=== PATIENT | male | born 1970 | race Caucasian/White ===

== ENCOUNTER → 2017-12-12 07:57 | Outpatient (CLI) | payer BC, SELFPAY ==
[2017-12-12 08:11] LABS: Basophils # 0.1 K/mm3 (0-0.2); Eosinophils # 0.2 K/mm3 (0.0-0.4); Eosinophils % 3.6 % (0.1-12.0); Hematocrit 51.5 % (42.0-52.0); Hemoglobin 16.9 g/dL (14.1-18.0); Lymphocytes # 1.4 K/mm3 (0.7-4.5); Lymphocytes % 26.8 K/mm3 (10-50); Mean Corpuscular HGB Conc 32.8 g/dL (31.8-35.4); Mean Corpuscular Hemoglobin 30.8 pg (27.0-31.2); Mean Corpuscular Volume 93.9 fl (80-94); Mean Platelet Volume 7.5 fl (7.4-10.4); Monocytes # 0.5 K/mm3 (0.1-1.0); Monocytes % 8.9 % (1.7-9.3); Neutrophils % 59.7 % (37.0-80.0); Platelet Count 237 K/mm3 (142-424); Red Blood Count 5.49 M/mm3 (4.60-6.20); Red Cell Distribution Width 12.7 % (11.5-17.5); White Blood Count 5.1 K/mm3 (4.8-10.8)
--- NOTE | 2017-12-12 09:00 | CT_ITS ---
CT abdomen pelvis w con COMPARISON: CT scan abdomen pelvis with IV and oral contrast 06/14/2017 HISTORY: Known Hodgkin's lymphoma TECHNIQUE: Multiaxial scans obtained from hemidiaphragms the pelvic floor and were performed with IV and oral contrast. Sagittal and coronal reformats were evaluated as well. FINDINGS: The lower lung barraza are clear. There is a small hiatal hernia. The liver stomach and pancreas appear normal. The gallbladder is grossly normal. The spleen is normal size again showing a couple of splenules. The adrenal glands are normal. The kidneys are normal in size and show symmetrical function both appearing normal. There is a small umbilical hernia containing fat only. Small bowel appears normal. Again noted are a few small mesenteric nodes. There is no abnormal retroperitoneal lymphadenopathy. I do not definitely identify the appendix but there are no pericecal inflammatory changes. There is moderate stool mixed with oral contrast in the right and transverse colon. The urinary bladder and prostate appear normal. Again noted is a stable grade 1 spondylolisthesis of L3 on L4 IMPRESSION: Findings as described with no abnormal abdominal or pelvic lymphadenopathy noted
--- NOTE | 2017-12-12 09:00 | CT_ITS ---
CT soft tissue neck w con COMPARISON: CT scan the neck with IV contrast 04/02/2015 HISTORY: Known Hodgkin's lymphoma TECHNIQUE: Multiaxial scans obtained from the base skull to the upper chest and were performed after injection of IV contrast. Sagittal and coronal reformats were evaluated as well. FINDINGS: The base of skull appears grossly normal. The parotid glands and submandibular glands are normal bilaterally. The previously noted is slightly enlarged jugulodigastric chain node right side now is normal in size. There has been definite decrease in size and number of the supraclavicular nodes seen on the previous exam. The largest node lower neck on the left side which previous measured approximately 3.0 cm now measures 0.9 cm. There is prominent dental amalgam causing streak artifact crossing the oral cavity. IMPRESSION: Overall improvement from the previous exam with marked decrease in the supraclavicular lymphadenopathy and decrease in size of the enlarged jugulodigastric chain node on the right side seen previously
--- NOTE | 2017-12-12 09:11 | CT_ITS ---
CT chest w con COMPARISON: CT scan the chest with IV contrast 06/14/2017 HISTORY: Known Hodgkin's lymphoma TECHNIQUE: Multiaxial scans obtained from the thoracic inlet the hemidiaphragms and were performed with IV contrast. Sagittal and coronal reformats were evaluated as well. FINDINGS: This is a somewhat poor inspiration. There is a borderline size node superior mediastinum right paratracheal region which is basically unchanged in size from the previous exam. There is no abnormal hilar lymphadenopathy. Cardiac size is normal. There is a small hiatal hernia noted. The lung barraza are clear of infiltrate, there is no pleural fluid. IMPRESSION: Stable CT scan the of the chest, no new lymphadenopathy
[2017-12-12 09:54] LABS: Alanine Aminotransferase 57 U/L (12-78); Albumin Level 4.1 gm/dL (3.4-5.0); Albumin/Globulin Ratio 1.2 (1.1-1.8); Alkaline Phosphatase 84 U/L (46-116); Anion Gap 11.3 mEq/L (5-15); Aspartate Amino Transferase 34 U/L (15-37); Bilirubin,Total 0.2 mg/dL (0.2-1.0); Blood Urea Nitrogen 13 mg/dL (7-18); Calcium 9.3 mg/dL (8.5-10.1); Carbon Dioxide 32 mmol/L (21.0-32.0); Chloride 103 mmol/L (98-107); Estimated Glomerular Filt Rate 72 ml/min (>60); GFR (African American) 88 ML/MIN (>60); Globulin 3.3 gm/dl (1.3-3.2); Glucose 117 mg/dL (74-106); Potassium 4.3 mmoL/L (3.5-5.1); Sodium 142 mmol/L (136-145); Total Protein,Serum 7.4 gm/dL (6.4-8.2)
== END ==
PROVIDERS: Family Provider Family Medicine; PCP Family Medicine; Visit Provider Internal Medicine
DX: C81.90 Hodgkin lymphoma, unspecified, unspecified site (principal); Z03.89 Encounter for observation for other suspected diseases and conditions ruled out
CPT/HCPCS: 36415; 70491; 71260; 74177; 80053; 85025; Q9967

== ENCOUNTER → 2018-06-21 07:17 | Outpatient (CLI) | payer BC, SELFPAY ==
[2018-06-21 07:43] LABS: Basophils # 0.1 K/mm3 (0-0.2); Eosinophils # 0.2 K/mm3 (0.0-0.4); Eosinophils % 2.8 % (0.1-12.0); Hematocrit 49.1 % (42.0-52.0); Lymphocytes # 1.2 K/mm3 (0.7-4.5); Lymphocytes % 20.6 K/mm3 (10-50); Mean Corpuscular HGB Conc 32.5 g/dL (31.8-35.4); Mean Corpuscular Volume 92.3 fl (80-94); Monocytes # 0.5 K/mm3 (0.1-1.0); Monocytes % 8.4 % (1.7-9.3); Neutrophils # 3.8 K/mm3 (1.8-7.8); Neutrophils % 67.3 % (37.0-80.0); Platelet Count 248 K/mm3 (142-424); Red Blood Count 5.32 M/mm3 (4.60-6.20); Red Cell Distribution Width 12.9 % (11.5-17.5); White Blood Count 5.6 K/mm3 (4.8-10.8)
[2018-06-21 08:44] LABS: Alanine Aminotransferase 48 U/L (12-78); Albumin Level 3.9 gm/dL (3.4-5.0); Albumin/Globulin Ratio 1.2 (1.1-1.8); Alkaline Phosphatase 83 U/L (46-116); Anion Gap 11.8 mEq/L (5-15); Aspartate Amino Transferase 24 U/L (15-37); Bilirubin,Total 0.5 mg/dL (0.2-1.0); Blood Urea Nitrogen 14 mg/dL (7-18); Calcium 9.3 mg/dL (8.5-10.1); Carbon Dioxide 31 mmol/L (21.0-32.0); Chloride 104 mmol/L (98-107); Creatinine,Serum 1.06 mg/dL (0.70-1.30); Estimated Glomerular Filt Rate 75 ml/min (>60); GFR (African American) 91 ML/MIN (>60); Globulin 3.3 gm/dl (1.3-3.2); Glucose 112 mg/dL (74-106); Potassium 4.8 mmoL/L (3.5-5.1); Sodium 142 mmol/L (136-145); Thyroid Stimulating Hormone 3.14 uIU/ml (0.358-3.740); Total Protein,Serum 7.2 gm/dL (6.4-8.2)
== END ==
PROVIDERS: PCP Family Medicine; Visit Provider Nurse Practitioner
DX: C81.90 Hodgkin lymphoma, unspecified, unspecified site (principal); R53.83 Other fatigue
CPT/HCPCS: 36415; 80053; 84443; 85025

== ENCOUNTER → 2018-12-12 08:39 | Outpatient (CLI) | payer BC, SELFPAY ==
--- NOTE | 2018-12-12 08:42 | CT_ITS ---
CT soft tissue neck w con CLINICAL INDICATION: Follow-up lymphoma ITS.REASON: hodgkins lymphoma ORDERING PHYSICIAN: Lucía Taylor PATIENT AGE: 48 years COMPARISON: 12/12/2017 TECHNIQUE:Axial images obtained following the intravenous administration of 50 mL's of Isovue 350. With sagittal and coronal reformats. All CT scans at the facility use one or more dose reduction, viz: automated exposure control, ma/kV adjustment per patient size (including targeted exams where dose is matched to indication, i.e. head), or iterative reconstruction technique. FINDINGS: Unremarkable orbits and nasopharynx. Significant artifact is present from dental amalgam. There is mild prominence of the patella teen tonsils on both sides with tonsillar calcifications. The epiglottis and glottic region has an unremarkable appearance. Scattered small nodes are present in the neck with no dominant adenopathy. Small node once again noted posterior to the right submandibular gland and 16 x 11 mm previously 19 x 12 mm. The thyroid gland has an unremarkable appearance. No supraclavicular adenopathy evident. IMPRESSION: 1. Overall stable CT appearance of the neck with no dominant adenopathy evident. 2. Mild prominence of the palatine tonsils not significantly changed
--- NOTE | 2018-12-12 08:42 | CT_ITS ---
CT chest w con HISTORY: Follow-up lymphoma ITS.REASON: hodgkin lymphoma ORDERING PHYSICIAN: Lucía Taylor PATIENT AGE: 48 years COMPARISON: 06/14/2017 TECHNIQUE: Axial images obtained following the administration of 50 mL of Optiray 350 . Sagittal, and coronal reformatted images are also generated and reviewed. All CT scans at the facility use one or more dose reduction, viz: automated exposure control, ma/kV adjustment per patient size (including targeted exams where dose is matched to indication, i.e. head), or iterative reconstruction technique. FINDINGS: There are few scattered small mediastinal lymph nodes in the paratracheal region and aortopulmonic window. These are nonspecific minimally changed in size with the largest node in the right paratracheal region at 22 x 12 mm not significant changed. Normal heart size. No evidence of pericardial effusion. No axillary adenopathy. There is a 3 mm nodule right upper lobe inferiorly unchanged. No effusions or infiltrates. No acute bony findings. IMPRESSION: Overall stable CT appearance of the chest. Stable small mediastinal lymph nodes with no new areas of adenopathy.
--- NOTE | 2018-12-12 08:42 | CT_ITS ---
CT abdomen pelvis w con CLINICAL INDICATION: Follow-up Hodgkin's lymphoma ITS.REASON: hodgkin lymphoma ORDERING PHYSICIAN: Lucía Taylor PATIENT AGE: 48 years COMPARISON: 1917 TECHNIQUE: Axial images obtained with sagittal and coronal reformats. All CT scans at the facility use one or more dose reduction, viz: automated exposure control, ma/kV adjustment per patient size (including targeted exams where dose is matched to indication, i.e. head), or iterative reconstruction technique. PROCEDURE: Oral Contrast: Redicat IV Contrast: 100 mL Isovue-370 performed in conjunction with the chest CT and neck CT. FINDINGS: The liver, gallbladder, adrenal glands, and pancreas have an unremarkable appearance. There is borderline splenomegaly with splenules once again noted. This is overall not significantly changed. No renal mass or hydronephrosis. There are few scattered small retroperitoneal lymph nodes which are stable. There is a small umbilical hernia which contains fat. No evidence of appendicitis, diverticulitis, intestinal obstruction, or free air. No pelvic mass or abnormal fluid collection. There are few small inguinal lymph nodes not significantly changed. No acute bony findings. There is grade 1 spondylolytic spondylolisthesis of L3 on L4 unchanged. IMPRESSION: Overall stable CT appearance of the abdomen and pelvis with no evidence of recurrent lymphoma.
== END ==
PROVIDERS: PCP Family Medicine; Visit Provider Nurse Practitioner
DX: C81.90 Hodgkin lymphoma, unspecified, unspecified site (principal); R53.83 Other fatigue
CPT/HCPCS: 70491; 71260; 74177; Q9967

== ENCOUNTER → 2018-12-20 07:18 | Outpatient (CLI) | payer BC, SELFPAY ==
[2018-12-20 07:38] LABS: Basophils # 0.1 K/mm3 (0-0.2); Basophils % 1.5 % (0.1-2.0); Eosinophils # 0.2 K/mm3 (0.0-0.4); Eosinophils % 3.1 % (0.1-12.0); Hematocrit 50.9 % (42.0-52.0); Hemoglobin 16.6 g/dL (14.1-18.0); Lymphocytes # 1.3 K/mm3 (0.7-4.5); Lymphocytes % 23.6 % (10-50); Mean Corpuscular HGB Conc 32.7 g/dL (31.8-35.4); Mean Corpuscular Hemoglobin 30.6 pg (27.0-31.2); Mean Corpuscular Volume 93.6 fl (80-94); Monocytes # 0.4 K/mm3 (0.1-1.0); Monocytes % 7.4 % (1.7-9.3); Neutrophils # 3.5 K/mm3 (1.8-7.8); Neutrophils % 64.4 % (37.0-80.0); Platelet Count 276 K/mm3 (142-424); Red Blood Count 5.44 M/mm3 (4.60-6.20); Red Cell Distribution Width 12.9 % (11.5-17.5); White Blood Count 5.4 K/mm3 (4.8-10.8)
[2018-12-20 08:53] LABS: Alanine Aminotransferase 44 U/L (12-78); Albumin Level 4.1 gm/dL (3.4-5.0); Albumin/Globulin Ratio 1.2 (1.1-1.8); Alkaline Phosphatase 72 U/L (46-116); Anion Gap 12.7 mEq/L (5-15); Aspartate Amino Transferase 28 U/L (15-37); Bilirubin,Total 0.5 mg/dL (0.2-1.0); Blood Urea Nitrogen 14 mg/dL (7-18); Calcium 9.2 mg/dL (8.5-10.1); Carbon Dioxide 29 mmol/L (21.0-32.0); Chloride 104 mmol/L (98-107); Creatinine,Serum 1.07 mg/dL (0.70-1.30); Estimated Glomerular Filt Rate 74 ml/min (>60); GFR (African American) 90 ML/MIN (>60); Globulin 3.3 gm/dl (1.3-3.2); Glucose 117 mg/dL (74-106); Potassium 4.7 mmoL/L (3.5-5.1); Sodium 141 mmol/L (136-145); Total Protein,Serum 7.4 gm/dL (6.4-8.2)
--- NOTE | 2018-12-20 11:53 | XR_ITS ---
XR knee RT 3V HISTORY: ITS.REASON: RT KNEE PAIN ORDERING PHYSICIAN: Lucía Taylor PATIENT AGE: 48 years COMPARISON: None FINDINGS: There are moderate osteoarthritic changes involving all 3 compartments with decrease in the joint spaces and osteophyte formation. There is a small suprapatellar effusion. No fracture or dislocation. No lytic or blastic change. IMPRESSION: Moderate osteoarthritis of the right knee with small knee joint effusion
[2018-12-20 12:05] LABS: Free T4 (Free Thyroxine) 0.86 ng/dl (0.76-1.46)
[2018-12-21 07:18] LABS: Thyroid Peroxidase Antibodies 10 IU/mL (0-34)
[2018-12-21 13:09] LABS: Triiodothyronine (T3) Free 3.6 pg/mL (2.0-4.4)
[2018-12-24 18:25] LABS: Triiodothyronine (T3) Reverse 17.9 ng/dL (9.2-24.1)
== END ==
PROVIDERS: PCP Family Medicine; Visit Provider Nurse Practitioner
DX: C81.90 Hodgkin lymphoma, unspecified, unspecified site (principal); R53.83 Other fatigue
CPT/HCPCS: 36415; 73562; 80053; 84439; 84443; 84481; 84482; 85025; 86376

== ENCOUNTER → 2018-12-25 09:42 | Outpatient (CLI) | payer BC, SELFPAY ==
--- NOTE | 2018-12-25 09:43 | US_ITS ---
ULTRASOUND THYROID ULTRASOUND THYROID PROCEDURE: Multiple sagittal & transverse ultrasound images of the thyroid. HISTORY: Elevated thyroid hormones. HISTORY of lymphoma. COMPARISON: CT cervical spine series with contrast ----- FINDINGS: Thyroid gland is upper normal in size bilaterally with suggestion of a nodule seen posterior right lobe . Minimal diminished color Doppler flow to the thyroid overall. Certainly no increased color Doppler flow RIGHT LOBE: On my measurement on submitted images of the right lobe measuring 3.7 Cm in length x 2cm AP X 2 .1 cm wide Nodule A: Extremely vague 1.7 x 1.4 nodule measured by technologist at posterior right thyroid. It is similar echogenicity to the remainder the gland only slightly hypoechoic on some images. With vague margin. LEFT LOBE: 3.9 cm length x 2.1 cm wide x1.5 similar AP. No nodule seen at the left lobe. Homogeneous appearance. Better visualized overall. ISTHMUS: Slight Generous AP thickness. Isthmus measures 6.4 mm AP. IMPRESSION 1. Thyroid gland upper normal size bilateral With Generous thickness isthmus (measuring 6.4 mm AP) 2. Suggestion of Vague difficult to visualize thyroid nodule along the posterior right lobe thyroid measures up to1.7 x 1.4 cm .
== END ==
PROVIDERS: PCP Family Medicine; Visit Provider Nurse Practitioner
DX: E03.9 Hypothyroidism, unspecified (principal)
CPT/HCPCS: 76536

== ENCOUNTER → 2019-02-15 15:52 | Outpatient (CLI) | payer BC, SELFPAY ==
[2019-02-15 18:48] LABS: Thyroid Stimulating Hormone 2.95 uIU/ml (0.358-3.740)
== END ==
PROVIDERS: Visit Provider Nurse Practitioner
DX: E03.9 Hypothyroidism, unspecified (principal)
CPT/HCPCS: 36415; 84443

== ENCOUNTER → 2019-06-20 07:31 | Outpatient (CLI) | payer BC, SELFPAY ==
[2019-06-20 07:53] LABS: Basophils # 0.1 K/mm3 (0-0.2); Eosinophils # 0.2 K/mm3 (0.0-0.4); Eosinophils % 3.1 % (0.1-12.0); Hematocrit 50.8 % (42.0-52.0); Lymphocytes # 1.2 K/mm3 (0.7-4.5); Lymphocytes % 25.1 % (10-50); Mean Corpuscular HGB Conc 31.4 g/dL (31.8-35.4); Mean Corpuscular Hemoglobin 30.3 pg (27.0-31.2); Mean Corpuscular Volume 96.5 fl (80-94); Mean Platelet Volume 7.5 fl (7.4-10.4); Monocytes # 0.4 K/mm3 (0.1-1.0); Monocytes % 9.1 % (1.7-9.3); Neutrophils # 2.9 K/mm3 (1.8-7.8); Neutrophils % 61.6 % (37.0-80.0); Platelet Count 265 K/mm3 (142-424); Red Blood Count 5.27 M/mm3 (4.60-6.20); Red Cell Distribution Width 13.5 % (11.5-17.5); White Blood Count 4.8 K/mm3 (4.8-10.8)
[2019-06-20 08:27] LABS: Alanine Aminotransferase 39 U/L (12-78); Albumin/Globulin Ratio 1.2 (1.1-1.8); Alkaline Phosphatase 73 U/L (46-116); Anion Gap 11.3 mEq/L (5-15); Aspartate Amino Transferase 30 U/L (15-37); Bilirubin,Total 0.5 mg/dL (0.2-1.0); Blood Urea Nitrogen 12 mg/dL (7-18); Calcium 9.2 mg/dL (8.5-10.1); Carbon Dioxide 28 mmol/L (21.0-32.0); Chloride 103 mmol/L (98-107); Creatinine,Serum 1.03 mg/dL (0.70-1.30); Estimated Glomerular Filt Rate 77 ml/min (>60); GFR (African American) 94 ML/MIN (>60); Globulin 3.3 gm/dl (1.3-3.2); Glucose 110 mg/dL (74-106); Potassium 4.3 mmoL/L (3.5-5.1); Sodium 138 mmol/L (136-145); Thyroid Stimulating Hormone 2.84 uIU/ml (0.358-3.740); Total Protein,Serum 7.3 gm/dL (6.4-8.2)
== END ==
PROVIDERS: Visit Provider Nurse Practitioner
DX: R53.83 Other fatigue; M25.561 Pain in right knee; C81.90 Hodgkin lymphoma, unspecified, unspecified site
CPT/HCPCS: 36415; 80053; 84443; 85025

== ENCOUNTER → 2019-09-05 15:47 | Outpatient (CLI) | payer BC, SELFPAY ==
--- NOTE | 2019-09-05 15:49 | MR_ITS ---
PROCEDURE: MR KNEE RT WO CON CLINICAL INDICATION: ACUTE PAIN OF RT KNEE, POSITIVE ALEX SIGN Acute pain of the right knee with instability, pain with bending COMPARISON: [id number] XR knee RT 3V from 12/20/2018 TECHNIQUE: Routine multiplanar multi echo sequences are performed without gadolinium enhancement. FINDINGS: The posterior cruciate ligament is enlarged with some heterogeneous signal intensity. The anterior cruciate ligament fibers are not well-defined with enlargement of the ACL. These findings may represent mucoid degeneration of both the ACL and PCL. Partial tear of the ACL is not excluded. There are severe osteoarthritic changes of all 3 compartments with loss of joint space, osteosclerosis, and osteophyte formation. There does appear to be a horizontal tear involving the anterior horn the lateral meniscus. Complex tear involves the posterior horn of the lateral meniscus with part of the meniscus missing in its normal location. There does appear to be a flipped meniscus of the posterior horn of the lateral meniscus with the flipped fragment located centrally. The medial meniscus shows no evidence of tear. The collateral ligaments appear intact. There is some bone marrow edema involving the proximal aspect of the tibia at the interspinous region and along the central aspect of the lateral and medial tibial plateaus. The patellar tendon and quadriceps tendon appear intact. There is prominent spurring at the patella and there is a small knee joint effusion. IMPRESSION: 1. Severe osteoarthritis of all 3 compartments with knee joint effusion 2. Complex tear with flipped meniscus involving the posterior horn of the lateral meniscus. 3. Horizontal tear anterior horn of the lateral meniscus. 4. Diffuse enlargement of both ACL and PCL consistent with mucoid degeneration Dictated by: Elder Minor MD 09/07/2019 11:23 Electronically signed by Elder Minor MD in [place] 09/07/2019 11:23
--- NOTE | 2019-09-05 16:00 | XR_ITS ---
PROCEDURE: XR ORBIT BILATERAL MIN 4V CLINICAL INDICATION: RULE OUT METAL FOREIGN BODY FOR MRI History metallic foreign body in the COMPARISON: No exams were available for comparison TECHNIQUE: AP views are obtained of the orbits with the patient looking up and down. FINDINGS: No radio opaque foreign bodies evident. IMPRESSION: No radio opaque orbital foreign body identified. Dictated by: Elder Minor MD 09/05/2019 16:21 Electronically signed by Elder Minor MD in [place] 09/05/2019 16:21
== END ==
PROVIDERS: PCP Family Medicine; Visit Provider Physician Assistant
DX: M25.561 Pain in right knee (principal); M25.461 Effusion, right knee; S83.206D Unspecified tear of unspecified meniscus, current injury, right knee, subsequent encounter; H05.53 Retained (old) foreign body following penetrating wound of bilateral orbits
CPT/HCPCS: 70200; 73721

== ENCOUNTER → 2019-12-31 08:43 | Outpatient (CLI) | payer BC, SELFPAY ==
--- NOTE | 2019-12-31 08:46 | CT_ITS ---
PROCEDURE: CT CHEST WO/W CON CLINCAL INDICATION: LYMPHOMA Follow-up lymphoma COMPARISON: CHESTW CT chest w con from 12/12/2018 CT SOFT TISSUE NECK WO/W CON from 12/31/2019 TECHNIQUE: IV Contrast: 75ml Optiray 350 Axial images obtained with sagittal and coronal reformats. All CT scans at the facility use one or more dose reduction, viz: automated exposure control, ma/kV adjustment per patient size (including targeted exams where dose is matched to indication, i.e. head), or iterative reconstruction technique. FINDINGS: HEART AND MEDIASTINAL STRUCTURES: There are few scattered small mediastinal lymph nodes once again noted overall not significantly changed. LUNGS AND PLEURAL SPACES: Unremarkable. BONY STRUCTURES: No acute bony abnormalities apparent. UPPER ABDOMEN: Unremarkable. ADDITIONAL FINDINGS: No other significant abnormalities. IMPRESSION: Overall stable CT appearance of the chest. There are few small mediastinal lymph nodes once again noted not significantly changed. Dictated by: Elder Minor MD 12/31/2019 11:39 Electronically signed by Elder Minor MD in [place] 12/31/2019 11:39
--- NOTE | 2019-12-31 08:46 | CT_ITS ---
PROCEDURE: CT ABDOMEN PELVIS WO/W CON CLINICAL INDICATION: LYMPHOMA Follow-up lymphoma COMPARISON: [facility] CT abdomen pelvis w con from 12/12/2018 TECHNIQUE: IV Contrast: 75ML OPTIRAY 350 Oral Contrast 20ml Gastroview Axial images obtained with sagittal and coronal reformats. All CT scans at the facility use one or more dose reduction, viz: automated exposure control, ma/kV adjustment per patient size (including targeted exams where dose is matched to indication, i.e. head), or iterative reconstruction technique. FINDINGS: LOWER THORAX: No acute finding ABDOMEN & PELVIS: The liver, adrenal glands, and pancreas have an unremarkable appearance. There is mild splenomegaly with a prominent splenule along the inferior aspect of the spleen and lobularity along the inferior aspect of the spleen. This is not significantly changed. There are scattered small retroperitoneal lymph nodes. There is a small umbilical hernia containing fat. Kidneys have an unremarkable appearance. No intestinal obstruction or free air. No evidence of appendicitis or diverticulitis. There is grade 1 spondylitic spondylolisthesis of L3 on L4 not significantly changed IMPRESSION: Overall stable CT appearance of the abdomen and pelvis. Continue mild splenomegaly with lobularity of the spleen not significantly changed. Dictated by: Elder Minor MD 12/31/2019 11:56 Electronically signed by Elder Minor MD in [place] 12/31/2019 11:56
--- NOTE | 2019-12-31 08:46 | CT_ITS ---
PROCEDURE: CT SOFT TISSUE NECK WO/W CON CLINICAL HISTORY: LYMPHOMA Follow-up lymphoma COMPARISON: NECKW CT soft tissue neck w con from 12/12/2018 TECHNIQUE: Oral Contrast: None IV Contrast: 75 mL Optiray 350 Axial images obtained with sagittal and coronal reformats. All CT scans at the facility use one or more dose reduction, viz: automated exposure control, ma/kV adjustment per patient size (including targeted exams where dose is matched to indication, i.e. head), or iterative reconstruction technique. FINDINGS: Axial images are obtained without with contrast. No obvious nasopharyngeal mass. The airway is narrowed at the nasopharynx and oropharynx region. The tonsils are slightly enlarged. Scattered small nodes are present in the neck without dominant adenopathy. The epiglottis, glottic region and subglottic area have an unremarkable appearance. No abnormal fluid collections. There are mild degenerative changes in the lower cervical spine. Unremarkable appearing thyroid gland IMPRESSION: There remains mild prominence of the palatine tonsils which may be slightly more prominent. The airway is narrowed superior to this region but could be due to patient's phase of respiration. Please correlate with direct visualization. No dominant adenopathy apparent Dictated by: Elder Minor MD 12/31/2019 11:12 Electronically signed by Elder Minor MD in [place] 12/31/2019 11:12
== END ==
PROVIDERS: PCP Family Medicine; Visit Provider Internal Medicine Medical Oncology
DX: C81.90 Hodgkin lymphoma, unspecified, unspecified site (principal)
CPT/HCPCS: 70492; 71270; 74178; Q9967

== ENCOUNTER → 2020-01-30 11:17 | Outpatient (CLI) | payer BC, SELFPAY ==
[2020-01-30 12:10] LABS: Basophils # 0.1 K/mm3 (0-0.2); Basophils % 1.2 % (0.1-2.0); Eosinophils # 0.2 K/mm3 (0.0-0.4); Hematocrit 51.1 % (42.0-52.0); Hemoglobin 16.6 g/dL (14.1-18.0); Lymphocytes # 1.5 K/mm3 (0.7-4.5); Lymphocytes % 22.8 % (10-50); Mean Corpuscular HGB Conc 32.5 g/dL (31.8-35.4); Mean Corpuscular Hemoglobin 31.2 pg (27.0-31.2); Mean Corpuscular Volume 95.8 fl (80-94); Mean Platelet Volume 7.8 fl (7.4-10.4); Monocytes # 0.6 K/mm3 (0.1-1.0); Monocytes % 9.5 % (1.7-9.3); Neutrophils # 4.2 K/mm3 (1.8-7.8); Neutrophils % 63.5 % (37.0-80.0); Platelet Count 238 K/mm3 (142-424); Red Blood Count 5.33 M/mm3 (4.60-6.20); Red Cell Distribution Width 12.9 % (11.5-17.5); White Blood Count 6.6 K/mm3 (4.8-10.8)
[2020-01-30 13:27] LABS: Chloride 100 mmol/L (98-107); Potassium 5.1 mmoL/L (3.5-5.1); Sodium 139 mmol/L (136-145)
[2020-01-30 13:30] LABS: Alanine Aminotransferase 44 U/L (12-78); Albumin Level 4.5 g/dl (3.5-5.0); Albumin/Globulin Ratio 1.6 (1.1-1.8); Alkaline Phosphatase 66 U/L (38-126); Anion Gap 14.1 mEq/L (5-15); Aspartate Amino Transferase 40 U/L (17-59); Bilirubin,Total 0.5 mg/dl (0.2-1.3); Blood Urea Nitrogen 16 mg/dl (9-20); Calcium 9.8 mg/dl (8.4-10.2); Carbon Dioxide 30 mmol/L (22.0-30.0); Estimated Glomerular Filt Rate 80 ml/min (>60); GFR (African American) 97 ML/MIN (>60); Globulin 2.8 g/dL (1.3-3.2); Glucose 82 mg/dl (74-100); Total Protein,Serum 7.3 g/dl (6.3-8.2)
== END ==
PROVIDERS: Visit Provider Internal Medicine Medical Oncology
DX: C81.90 Hodgkin lymphoma, unspecified, unspecified site (principal)
CPT/HCPCS: 36415; 80053; 85025

== ENCOUNTER → 2020-05-10 07:03 | Outpatient (CLI) | payer BC, SELFPAY ==
[2020-05-10 09:46] LABS: Alanine Aminotransferase 55 U/L (12-78); Albumin Level 4.6 g/dl (3.5-5.0); Albumin/Globulin Ratio 1.6 (1.1-1.8); Alkaline Phosphatase 102 U/L (38-126); Anion Gap 14.7 mEq/L (5-15); Aspartate Amino Transferase 63 U/L (17-59); Bilirubin,Total 0.5 mg/dl (0.2-1.3); Blood Urea Nitrogen 15 mg/dl (9-20); Calcium 9.3 mg/dl (8.4-10.2); Carbon Dioxide 28 mmol/L (22.0-30.0); Chloride 101 mmol/L (98-107); Cholesterol 219 mg/dl (140-200); Estimated Glomerular Filt Rate 80 ml/min (>60); GFR (African American) 97 ML/MIN (>60); Globulin 2.9 g/dL (1.3-3.2); Glucose 100 mg/dl (74-100); HDL Cholesterol 44 mg/dl (40-60); Potassium 4.7 mmoL/L (3.5-5.1); Sodium 139 mmol/L (136-145); Total Protein,Serum 7.5 g/dl (6.3-8.2); Triglycerides 210 mg/dl (30-150); VLDL Cholesterol 42 mg/dL (0-40)
[2020-05-10 09:57] LABS: Direct LDL Cholesterol 127.65 mg/dL (100-129)
== END ==
PROVIDERS: Visit Provider Family Medicine
DX: Z13.220 Encounter for screening for lipoid disorders (principal); E66.9 Obesity, unspecified
CPT/HCPCS: 36415; 80053; 80061

== ENCOUNTER → 2020-07-29 15:47 | Outpatient (CLI) | payer BC, SELFPAY ==
[2020-07-29 16:24] LABS: Basophils # 0.1 K/mm3 (0-0.2); Basophils % 1.1 % (0.1-2.0); Eosinophils # 0.3 K/mm3 (0.0-0.4); Eosinophils % 3.1 % (0.1-12.0); Hematocrit 50.7 % (42.0-52.0); Hemoglobin 16.9 g/dL (14.1-18.0); Lymphocytes # 1.9 K/mm3 (0.7-4.5); Lymphocytes % 23.9 % (10-50); Mean Corpuscular HGB Conc 33.3 g/dL (31.8-35.4); Mean Corpuscular Hemoglobin 31.3 pg (27.0-31.2); Mean Platelet Volume 7.5 fl (7.4-10.4); Monocytes # 0.7 K/mm3 (0.1-1.0); Monocytes % 8.5 % (1.7-9.3); Neutrophils % 63.4 % (37.0-80.0); Platelet Count 252 K/mm3 (142-424); Red Cell Distribution Width 13.2 % (11.5-17.5); White Blood Count 7.9 K/mm3 (4.8-10.8)
[2020-07-29 18:00] LABS: Alanine Aminotransferase 45 U/L (12-78); Albumin Level 4.5 g/dl (3.5-5.0); Albumin/Globulin Ratio 1.7 (1.1-1.8); Alkaline Phosphatase 90 U/L (38-126); Anion Gap 14.1 mEq/L (5-15); Aspartate Amino Transferase 44 U/L (17-59); Bilirubin,Total 0.3 mg/dl (0.2-1.3); Blood Urea Nitrogen 17 mg/dl (9-20); Calcium 9.8 mg/dl (8.4-10.2); Carbon Dioxide 29 mmol/L (22.0-30.0); Chloride 100 mmol/L (98-107); Estimated Glomerular Filt Rate 65 ml/min (>60); GFR (African American) 78 ML/MIN (>60); Globulin 2.7 g/dL (1.3-3.2); Glucose 91 mg/dl (74-100); Potassium 4.1 mmoL/L (3.5-5.1); Sodium 139 mmol/L (136-145); Total Protein,Serum 7.2 g/dl (6.3-8.2)
== END ==
PROVIDERS: Visit Provider Internal Medicine Medical Oncology
DX: Z85.71 Personal history of Hodgkin lymphoma
CPT/HCPCS: 36415; 80053; 85025

== ENCOUNTER 2021-05-29 09:10 | Emergency (ER) | payer BC, SELFPAY ==
[2021-05-29 09:12] VITALS: BP 164/96; PULSE 60; RESP 20; TEMP 37; O2SAT 97; BMI 43.9
--- NOTE | 2021-05-29 10:09 | HMH.EDUTC ---
[facility] [place] Clinical Impression: Exposure to COVID-19 virus Disposition: Home, Self-Care Condition on Discharge: Good Instructions: DI for COVID-19 (Suspected or Confirmed ), Preventing the Spread of Coronavirus Discharge Instructions Additional Instructions: Drink plenty of fluids. Take tylenol for pain or fever. Return if you begin to have difficulty breathing. Follow up with your regular doctor. GO TO THE ER FOR ANY WORSENING SYMPTOMS Quarantine until you know the results of your covid-19 test. If it is positive, the health department should call you and give you further instructions about your length of Quarantine and other things. Notify your school or workplace of your results and follow their instructions regarding return to work/school. Referrals: Sree Blake MD [Primary Care Provider] - Time of Disposition: 10:15 Medical Decision Making - Medical Records Medical records reviewed: No: I reviewed the patient's medical records. - Osmany Inquiry Pt receiving controlled substance: No Vital Signs: 05/29/21 09:12 05/29/21 10:23 Temperature 98.6 F 98.6 F Temperature Source Oral Pulse Rate 60 Pulse Rate [Left Radial] 60 Respiratory Rate 20 20 Blood Pressure 164/96 H Blood Pressure [Right Arm] 164/96 H Blood Pressure Mean [Right Arm] 118 Blood Pressure Source [Right Arm] Automatic Cuff Blood Pressure Position [Right Arm] Sitting 02 Sat by Pulse Oximetry 97 Oxygen Delivery Method Room Air Room Air Orders (Tests/Meds): ORDERS Category Date Time Status Covid-19 Nasal PCR ([facility]) Routine Lab 05/29/21 09:47 [place] [facility] - General Stated complaint: covidtest, exposure Time Seen by Provider: 05/29/21 10:09 - History of Present Illness Provider Complaint: He has been exposed to covid in his house. He denies any symptoms so far. - Related Data Allergies Allergy/AdvReac Type Severity Reaction Status Date / Time No Known Allergies Allergy Verified 08/01/20 11:56 [facility] History - Hepatitis A Screen Attestation statement:: This patient has been screened for Hepatitis A risk factors. I have reviewed the patient's past medical history: Yes Medical History: Reports:: Cancer Other Medical History: Reports: Arthritis Laterality Cases: Right: Arthroscopy Knee Other Surgeries: Yes: No Previous Surgery, Other Amputation: No Fractures: No Comment: Lymph node biopsy, port placed - Social History Smoking Status: Former smoker Tobacco Type: cigarettes Alcohol Intake: never Alcohol Intake Frequency:: holidays/special occasions only Substance Use Type: denies use Occupational Status: employed Household Members: spouse Family Hx:: Cancer, Diabetes, Coronary Artery Disease ROS Obtained: Yes All systems reviewed & no additional complaints - Constitutional Constitutional: Reports system reviewed and no additional complaints, except as docu - Eyes Eyes: Reports system reviewed and no additional complaints, except as docu - ENT Ears, Nose, Mouth, and Throat: Reports system reviewed and no additional complaints, except as docu - Cardiovascular Cardiovascular: Reports system reviewed and no additional complaints, except as docu - Respiratory Respiratory: Reports system reviewed and no additional complaints, except as docu Physical Exam - General General appearance: alert, in no apparent distress - Head Head exam: atraumatic, normocephalic, normal inspection - Eye Eye exam: Present: normal appearance, PERRL, EOMI - ENT ENT exam: Present: normal exam, normal oropharynx, mucous membranes moist, TM's normal bilaterally, normal external ear exam - Neck Neck exam: Present: normal inspection, full ROM, trachea midline. Absent: meningismus, lymphadenopathy - Chest Chest inspection: Present: normal inspection, symmetric chest wall rise. Absent: tenderness - Respiratory Respiratory exam: Present: normal lung sounds bilaterally. A
[2021-05-29 10:23] VITALS: BP 164/96; PULSE 60; RESP 20; TEMP 37; O2SAT 97
== END 2021-05-29 10:27 | disposition home or self-care (01) ==
PROVIDERS: Emergency Provider Nurse Practitioner Family; PCP Family Medicine
DX: Z20.822 Contact with and (suspected) exposure to COVID-19 (principal)
CPT/HCPCS: 99202; G0463; U0003

== ENCOUNTER → 2021-08-05 15:49 | Outpatient (CLI) | payer BC, SELFPAY ==
[2021-08-05 16:22] LABS: Basophils # 0.1 K/mm3 (0-0.2); Basophils % 1.5 % (0.1-2.0); Eosinophils # 0.2 K/mm3 (0.0-0.4); Eosinophils % 3.1 % (0.1-12.0); Hematocrit 49.1 % (42.0-52.0); Hemoglobin 16.6 g/dL (14.1-18.0); Lymphocytes % 25.4 % (10-50); Mean Corpuscular HGB Conc 33.9 g/dL (31.8-35.4); Mean Corpuscular Hemoglobin 32.1 pg (27.0-31.2); Mean Corpuscular Volume 94.7 fl (80-94); Monocytes # 0.6 K/mm3 (0.1-1.0); Monocytes % 7.5 % (1.7-9.3); Neutrophils # 4.8 K/mm3 (1.8-7.8); Neutrophils % 62.5 % (37.0-80.0); Platelet Count 291 K/mm3 (142-424); Red Blood Count 5.18 M/mm3 (4.60-6.20); Red Cell Distribution Width 13.2 % (11.5-17.5); White Blood Count 7.7 K/mm3 (4.8-10.8)
[2021-08-05 16:43] LABS: Chloride 100 mmol/L (98-107); Sodium 136 mmol/L (136-145)
[2021-08-05 16:46] LABS: Alanine Aminotransferase 41 U/L (12-78); Albumin Level 4.5 g/dl (3.5-5.0); Albumin/Globulin Ratio 1.7 (1.1-1.8); Alkaline Phosphatase 93 U/L (38-126); Aspartate Amino Transferase 44 U/L (17-59); Bilirubin,Total 0.3 mg/dl (0.2-1.3); Blood Urea Nitrogen 19 mg/dl (9-20); Calcium 9.4 mg/dl (8.4-10.2); Carbon Dioxide 27 mmol/L (22.0-30.0); Estimated Glomerular Filt Rate 90 ml/min (>60); GFR (African American) 109 ML/MIN (>60); Globulin 2.7 g/dL (1.3-3.2); Glucose 88 mg/dl (74-100); Total Protein,Serum 7.2 g/dl (6.3-8.2)
== END ==
PROVIDERS: Visit Provider Internal Medicine Medical Oncology
DX: Z85.71 Personal history of Hodgkin lymphoma (principal)
CPT/HCPCS: 36415; 80053; 85025

== ENCOUNTER 2022-06-22 09:18 | Emergency (ER) | payer BC, SELFPAY ==
[2022-06-22 09:50] VITALS: BP 146/70; PULSE 78; RESP 18; TEMP 36.6; O2SAT 99; BMI 44.9
--- NOTE | 2022-06-22 10:07 | EXP.UTC ---
Discharge Plan Disposition Patient Disposition: Home, Self-Care Condition: Good Prescriptions Prescriptions: No Action No Known Home Medications Referrals Follow up/Referrals: Sree Blake MD [Primary Care Provider] - See instructions Activity Restrictions/Add. Instructions Additional Instructions/Restrictions: *Monitor Temp, Over the counter Motrin or Tylenol as directed/as needed Tylenol every 4 hours and Motrin every 6 hours (as long as your family doctor has told you that you can take it) for fever or pain. and straight to ER if unable to lower temp less than 101.0 after medication given *Warm salt water gargles may help to soothe the throat *Throat Lozenges? *Warm fluids like tea with honey may help to soothe the throat? *Sleep elevated *Humidifier/Vaporizer Over the counter Delsym may help with your cough if you can take it Follow up IMMEDIATELY for new or worsening symptoms or no Noticeable improvement over the next 48-72 hours. 911 for difficulty breathing or swallowing You were tested for today for COVID19 your test result should be back in the next 24-48 hours, you may check your results on the [facility] My Health Portal Make sure to take your Vitamins Vit. C Vit D and Zinc if you can take them Clinical Impressions Clinical Impression: Encounter for laboratory testing for COVID-19 virus Stand Alone Forms Stand Alone Forms: Work/School Release Instructions Patient Instructions: Coronavirus Disease 2019, Preventing the Spread of Coronavirus Discharge Instructions Discharge ED Provider: Lucía Gallegos [facility] [place] HPI General Stated complaint: Covid test+, drainage, cough, fever, VANESSA Time Seen by Provider: 06/22/22 10:07 History of Present Illness Provider Complaint: Patient states that he has been having fever, nasal congestion and cough State that he decided to take a home COVID test last night and it was positive State that work requires him to come in and get PCR test so he came in today to get tested Related Data Home Medications Medication Instructions Recorded Confirmed No Known Home Medications 08/06/21 08/06/21 Allergies Allergy/AdvReac Type Severity Reaction Status Date / Time No Known Allergies Allergy Verified 08/06/21 09:46 [facility] Medical History (Updated 06/22/22 @ 10:12 by Lucía Gallegos APRN) Hypertension Social History Smoking Status: Former smoker alcohol intake: never substance use type: denies use current occupational status: employed Travel in the last 8 weeks: None household members: spouse ROS Obtained: Yes All systems reviewed & no additional complaints except as documented and Yes Systems reviewed as appropriate & no additional complaints except as documented Constitutional Constitutional: Reports system reviewed and no additional complaints, except as documented, Reports as per HPI, Reports fever(s) and Reports headache(s) ENT Ears, Nose, Mouth, and Throat: Reports system reviewed and no additional complaints, except as documented, Reports as per HPI, Reports headache(s), Reports nasal congestion and Reports nasal discharge Cardiovascular Cardiovascular: Reports system reviewed and no additional complaints, except as documented and Reports as per HPI Respiratory Respiratory: Reports system reviewed and no additional complaints, except as documented, Reports as per HPI, Denies shortness of breath and Reports cough Neurologic Neurologic: Reports headache(s) Physical Exam General General appearance: alert and in no apparent distress Expanded ENT Exam Nose exam: Absent sinus tenderness Throat exam: Present other (mild pharyngeal erythema noted) Respiratory Respiratory exam: Present normal lung sounds bilaterally; Absent respiratory distress Cardiovascular Cardiovascular exam: Present regular rate, normal rhythm and normal heart sounds Neurological Exam Neurological exam: Present alert, oriented X3 a
[2022-06-22 10:12] VITALS: BP 146/70; PULSE 78; RESP 18; TEMP 36.6; O2SAT 99
== END 2022-06-22 10:16 | disposition home or self-care (01) ==
PROVIDERS: Emergency Provider Nurse Practitioner; PCP Family Medicine
DX: U07.1 COVID-19 (principal)
CPT/HCPCS: 99212; C9803; G0463; U0003; U0005

== ENCOUNTER → 2023-04-02 08:17 | Outpatient (CLI) | payer BC, SELFPAY ==
[2023-04-02 09:20] LABS: Alanine Aminotransferase 50 U/L (12-78); Albumin Level 4.3 g/dl (3.5-5.0); Albumin/Globulin Ratio 1.7 (1.1-1.8); Alkaline Phosphatase 93 U/L (38-126); Anion Gap 13.4 mEq/L (5-15); Aspartate Amino Transferase 46 U/L (17-59); Bilirubin,Total 0.5 mg/dl (0.2-1.3); Blood Urea Nitrogen 13 mg/dl (9-20); Carbon Dioxide 23 mmol/L (22.0-30.0); Chloride 106 mmol/L (98-107); Chol/HDL Ratio 5.3 (1-3.5); Cholesterol 221 mg/dl (140-200); Estimated Glomerular Filt Rate 102 ml/min (>60); GFR (African American) 123 ML/MIN (>60); Globulin 2.5 g/dL (1.3-3.2); Glucose 119 mg/dl (74-100); HDL Cholesterol 42 mg/dl (40-60); Potassium 4.4 mmoL/L (3.5-5.1); Sodium 138 mmol/L (136-145); Total Protein,Serum 6.8 g/dl (6.3-8.2); Triglycerides 262 mg/dl (30-150); VLDL Cholesterol 52 mg/dL (0-40)
== END ==
PROVIDERS: PCP Family Medicine; Visit Provider Family Medicine
DX: I10 Essential (primary) hypertension (principal); E78.5 Hyperlipidemia, unspecified; Z12.5 Encounter for screening for malignant neoplasm of prostate
CPT/HCPCS: 36415; 80053; 80061; G0103

== ENCOUNTER 2024-01-02 15:00 | Outpatient (RCR) | payer BC, SELFPAY | END 2024-01-02 15:05 | disposition home or self-care (01) | LOC: OT 15:00 | PROVIDERS: Visit Provider Orthopaedic Surgery | DX: M19.011 Primary osteoarthritis, right shoulder (principal) | CPT/HCPCS: 97010; 97014; 97110; 97140; 97165; G0283 ==